=== PATIENT | female | born 1990 | race Caucasian/White ===

== ENCOUNTER 2018-05-02 22:07 | Emergency (ER) | payer BC ==
[~2018-05-02] VITALS: Ht 165.1 cm; Wt 66.2 kg
[2018-05-02] MEDS ORDERED: ACETAMINOPHEN 325 MG TABLET PO ONE (22:15)
[2018-05-02] MEDS ORDERED: ACETAMINOPHEN 325 MG TABLET ONE (22:22)
[2018-05-02] MEDS ORDERED: LIDOCAINE 1%-EPI 1:100,000 20 ML VIAL ONE (22:29)
--- NOTE | 2018-05-02 22:45 | NUR ---
MD CAVAZOS AT BEDSIDE PERFORMING LAC REPAIR
[2018-05-02] MEDS ORDERED: NEOMY/BACITRA/POLYMYXIN B OINT UD PACKET TP ONE (23:10)
[2018-05-02] MEDS ORDERED: TDAP DIPH,PERTUSS,TET VAC/PF 0.5 ML DISP.SYRIN IM ONE ×3 (23:15→23:40)
[2018-05-02] MEDS ORDERED: LIDOCAINE 1%-EPI 1:100,000 20 ML VIAL TP ONE (23:15)
[2018-05-02] MEDS ORDERED: SODIUM BICARBONATE 4.2 % (NEUT) 5 ML VIAL IV ONE (23:30)
[2018-05-02] MEDS ORDERED: CEPHALEXIN MONOHYDRATE 500 MG CAPSULE PO ONE (23:45)
--- NOTE | 2018-05-02 23:48 | NUR ---
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
[2018-05-02] MEDS ORDERED: CEPHALEXIN MONOHYDRATE 500 MG CAPSULE ONE (23:52)
--- NOTE | 2018-05-03 00:10 | NUR ---
Patient discharged to home in stable conditon. Written and verbal after care instructions given. Patient verbalizes understanding of instructions. Patient able to ambulate unassisted with a steady gait. Patient left with all personal belongings.
[2018-05-03 00:14] VITALS: BP 153/97
== END 2018-05-03 00:10 | disposition home or self-care (01) ==
LOC: ER 22:09
DX: S01.81XA Laceration without foreign body of other part of head, initial encounter (principal); Z23 Encounter for immunization; W21.07XA Struck by softball, initial encounter; Y93.89 Activity, other specified; Y92.89 Other specified places as the place of occurrence of the external cause; Y99.8 Other external cause status
CPT/HCPCS: 70150; 90715; A4217; A4663; J3490